=== PATIENT | female | born 1935 | race Caucasian/White ===

== ENCOUNTER 2020-11-18 13:33 | Emergency (ER) | payer MEDICARE ==
[~2020-11-18 13:33] MED LIST: ALDACTONE 25MG25 MG PO; AUGMENTIN 875-1 EACH PO; BUSPAR 10MG10 MG PO; HYDROXYZINE HCL25 MG PO; LABETALOL HCL300 MG PO; LISINOPRIL10 MG PO; NORCO 5-325 TA1 EACH PO; VITAMIN D325 MCG PO; ZOFRAN ODT 4 MG4 MG PO; ZYVOX600 MG PO
[2020-11-18 14:02] LABS: HEMOGLOBIN 12.4 gm/dl (12.3-15.3); RED BLOOD COUNT 4.2 M/UL (4.00-5.10); WHITE BLOOD COUNT 7.9 K/UL (4.5-11.0)
[2020-11-18 14:21] LABS: BUN/CREATININE RATIO 14 (0-10)
[2020-11-18] MEDS ORDERED: DOXYCYCLINE HY100 M2 PO (15:33)
== END 2020-11-18 15:42 | disposition home or self-care (01) ==
LOC: ER1 13:33
PROVIDERS: Emergency Medicine
DX: N39.0 Urinary tract infection, site not specified (principal); R60.0 Localized edema
CPT/HCPCS: 73630; 80053; 81001; 85025; 86140; 93971; 96374; 99284

== ENCOUNTER → 2020-12-06 | Outpatient (CLI) | payer MEDICARE ==
[~2020-12-06] MED LIST changes: +DOXYCYCLINE HY100 M2 PO
== END ==
LOC: KOH-I 14:12
DX: I73.9 Peripheral vascular disease, unspecified (principal)
CPT/HCPCS: 93925

== ENCOUNTER → 2020-12-17 | Outpatient (CLI) | payer MEDICARE ==
[~2020-12-17] MED LIST changes: +AMMONIUM LACTATE TOP; +CIPRO250 MG PO
[2020-12-17 13:19] LABS: HEMOGLOBIN 12.3 gm/dl (12.3-15.3); RED BLOOD COUNT 4.19 M/UL (4.00-5.10); WHITE BLOOD COUNT 7.9 K/UL (4.5-11.0)
== END ==
LOC: OPSV2 11:30
PROVIDERS: Podiatrist Foot & Ankle Surgery
DX: Z01.812 Encounter for preprocedural laboratory examination (principal); M86.672 Other chronic osteomyelitis, left ankle and foot
CPT/HCPCS: 85027

== ENCOUNTER → 2020-12-28 | Day surgery (SDC) | payer MEDICARE | END | disposition home or self-care (01) | LOC: OR 06:06 | DX: M86.672 Other chronic osteomyelitis, left ankle and foot (principal); M20.42 Other hammer toe(s) (acquired), left foot; M20.41 Other hammer toe(s) (acquired), right foot; L97.529 Non-pressure chronic ulcer of other part of left foot with unspecified severity; L97.519 Non-pressure chronic ulcer of other part of right foot with unspecified severity; L03.032 Cellulitis of left toe; G62.9 Polyneuropathy, unspecified; L84 Corns and callosities; Z20.822 Contact with and (suspected) exposure to COVID-19 | CPT/HCPCS: 73630; J1100; J2001; J2405; J2704; J2795; J3010; J3370; J7030; J7120 ==